=== PATIENT | male | born 1990 | race African-American/Black ===

== ENCOUNTER 2018-01-27 20:37 | Emergency (ER) | payer OTHER ==
--- NOTE | 2018-01-27 20:51 | EDM.PDOC ---
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 Past medical history: As per history of present illness and as reviewed below otherwise noncontributory. Surgical history: As per history of present illness and as reviewed below otherwise noncontributory. Social history: No reported history of drug or alcohol abuse. Family history: As per history of present illness and as reviewed below otherwise noncontributory. Physical exam: HEENT: Atraumatic, normocephalic, pupils reactive, negative for conjunctival pallor or scleral icterus, mucous membranes moist, throat clear, neck supple, nontender, trachea midline. Lungs: Clear to auscultation, breath sounds equal bilaterally, chest nontender. Heart: S1S2, regular, negative for clicks, rubs, or JVD. Abdomen: Soft, nondistended, nontender. Negative for masses or hepatosplenomegaly. Negative for costovertebral tenderness. Pelvis: Stable nontender. Genitourinary: Deferred. Rectal: Deferred. Extremities: Atraumatic, negative for cords or calf pain. Neurovascular unremarkable. Neuro: Awake, alert, oriented. Cranial nerves II through XII unremarkable. Cerebellum unremarkable. Motor and sensory unremarkable throughout. Exam nonfocal. Diagnostics: [CBC CMP carboxyhemoglobin Chest 1 view] Therapeutics: [GI cocktail ] Impression: [Carbon monoxide exposure ]Stomach upset Definitive disposition and diagnosis as appropriate pending reevaluation and review of above. - Related Data Allergies Allergy/AdvReac Type Severity Reaction Status Date / Time No Known Allergies Allergy Verified 01/27/18 20:51 Home Meds: Home Meds . [No Known Home Meds] 01/27/18 [History] ED ROS GENERAL - Review of Systems Review Of Systems: See Below ED EXAM, BURN/SMOKE INHALATION - Physical Exam Exam: See Below Course - Vital Signs Last Recorded V/S: Last Vital Signs Temp 97.1 F 01/27/18 20:55 Pulse 82 01/27/18 20:55 Resp 18 01/27/18 20:55 BP 121/72 01/27/18 20:55 Pulse Ox 97 01/27/18 20:55 - Orders/Labs/Meds Orders: Active Orders 24 hr Category Date Time Status Chest 1V Frontal [CR] Stat Exams 01/27/18 20:50 Taken DRUG SCREEN, URINE [URCHEM] Stat Lab 01/27/18 21:10 Ordered Labs: Laboratory Tests 01/27/18 01/27/18 01/27/18 Range/Units 21:06 21:06 21:06 WBC 6.87 (4.0-11.0) K/uL RBC 5.53 (4.50-5.90) M/uL Hgb 16.1 (13.0-17.0) g/dL Hct 45.8 (38.0-50.0) % MCV 82.8 (80.0-98.0) fL MCH 29.1 (27.0-32.0) pg MCHC 35.2 (31.0-37.0) g/dL RDW Std Deviation 39.6 (28.0-62.0) fl RDW Coeff of Masoud 13 (11.0-15.0) % Plt Count 198 (150-400) K/uL MPV 9.30 (7.40-12.00) fL Neut % (Auto) 40.3 L (48.0-80.0) % Lymph % (Auto) 46.0 H (16.0-40.0) % [place] % (Auto) 8.2 (0.0-15.0) % Eos % (Auto) 5.4 (0.0-7.0) % Baso % (Auto) 0.1 (0.0-1.5) % Neut # (Auto) 2.8 (1.4-5.7) K/uL Lymph # (Auto) 3.2 H (0.6-2.4) K/uL [place] # (Auto) 0.6 (0.0-0.8) K/uL Eos # (Auto) 0.4 (0.0-0.7) K/uL Baso # (Auto) 0.0 (0.0-0.1) K/uL Nucleated RBC % 0.0 /100WBC Nucleated RBCs # 0 K/uL ABG Carboxyhemoglobin 2.2 (0-15) % Sodium 144 (136-148) mmol/L Potassium 3.5 (3.5-5.1) mmol/L Chloride 107 (98-107) mmol/L Carbon Dioxide 26.8 (21.0-32.0) mmol/L BUN 13 (7.0-18.0) mg/dL Creatinine 1.0 (0.8-1.3) mg/dL Est Cr Clr Drug Dosing 102.82 mL/min Estimated GFR (MDRD) > 60.0 ml/min Glucose 99 (74-106) mg/dL Calcium 9.1 (8.5-10.1) mg/dL Total Bilirubin 0.3 (0.2-1.0) mg/dL AST 17 (15-37) IU/L ALT 36 (14-63) IU/L Alkaline Phosphatase 42 L (46-116) U/L Total Protein 7.7 (6.4-8.2) g/dL Albumin 4.3 (3.4-5.0) g/dL Globulin 3.4 (2.0-3.5) g/dL Albumin/Globulin Ratio 1.3 (1.3-2.8) Urine Opiates Screen (NEGATIVE) Ur Oxycodone Screen (NEGATIVE) Urine Methadone Screen (NEGATIVE) Ur Barbiturates Screen (NEGATIVE) Ur Phencyclidine Scrn (NEGATIVE) Ur Amphetamine Screen (NEGATIVE) U Methamphetamines Scrn (NEGATIVE) U Benzodiazepines Scrn (NEGATIVE) U Cocaine Metab Screen (NEGATIVE) U Marijuana (THC) Screen (NEGATIVE) 01/27/18 Range/Units 21:10 WBC (4.0-11.0) K/uL RBC (4.50-5.90) M/uL Hgb (13.0-17.0) g/dL Hct (38.0-50.0) % MCV (80.0-98.0) fL MCH (27.0-32.0) pg MCHC (31.0-37.0) g/dL RDW Std Deviation (28.0-62.0) fl RDW Coeff of Masoud (11.0-15.0) % Plt Count (150-400) K/uL MPV (7.40-12.00) fL Neut % (Auto) (48.0-80.0) % Lymph % (Auto) (16.0-40.0) % [place] % (Auto) (0.0-15.0) % Eos % (Auto) (0.0-7.0) % Baso % (Auto) (0.0-1.5) % Neut # (Auto) (1.4-5.7) K/uL Lymph # (Auto) (0.6-2.4) K/uL [place] # (Auto) (0.0-0.8) K/uL Eos # (Auto) (0.0-0.7) K/uL Baso # (Auto) (0.0-0.1) K/uL Nucleated RBC % /100WBC Nucleated RBCs # K/uL ABG Carboxyhemoglobin (0-15) % Sodium (136-148) mmol/L Potassium (3.5-5.1) mmol/L Chloride (98-107) mmol/L Carbon Dioxide (21.0-32.0) mmol/L BUN (7.0-18.0) mg/dL Creatinine (0.8-1.3) mg/dL Est Cr Clr Drug Dosing mL/min Estimated GFR (MDRD) ml/min Glucose (74-106) mg/dL Calcium (8.5-10.1) mg/dL Total Bilirubin (0.2-1.0) mg/dL AST (15-37) IU/L ALT (14-63) IU/L Alkaline Phosphatase (46-116) U/L Total Protein (6.4-8.2) g/dL Albumin (3.4-5.0) g/dL Globulin (2.0-3.5) g/dL Albumin/Globulin Ratio (1.3-2.8) Urine Opiates Screen NEGATIVE (NEGATIVE) Ur Oxycodone Screen NEGATIVE (NEGATIVE) Urine Methadone Screen NEGATIVE (NEGATIVE) Ur Barbiturates Screen NEGATIVE (NEGATIVE) Ur Phencyclidine Scrn NEGATIVE (NEGATIVE) Ur Amphetamine Screen NEGATIVE (NEGATIVE) U Methamphetamines Scrn NEGATIVE (NEGATIVE) U Benzodiazepines Scrn NEGATIVE (NEGATIVE) U Cocaine Metab Screen NEGATIVE (NEGATIVE) U Marijuana (THC) Screen NEGATIVE (NEGATIVE) Meds: Medications Discontinued Medications Generic Name Dose Route Start Last Admin Trade Name Thania PRN Reason Stop Dose Admin Al Hydroxide/Mg Hydroxide 15 0 ml 01/27/18 21:27 01/27/18 21:39 ml/ Metoclopramide HCl 5 mg/ PO 01/27/18 21:28 25 each Lidocaine HCl 5 ml ONETIME ONE Administration Departure - Departure Time of Disposition: 21:54 Disposition: Home, Self-Care 01 Condition: Good Clinical Impression: Stomach upset - Discharge Information Referrals: PCP,None [Primary Care Provider] - Forms: ED Department Discharge Additional Instructions: The following information is given to patients seen in the emergency department who are being discharged to home. This information is to outline your options for follow-up care. We provide all patients seen in our emergency department with a follow-up referral. The need for follow-up, as well as the timing and circumstances, are variable depending upon the specifics of your emergency department visit. If you don't have a primary care physician on staff, we will provide you with a referral. We always advise you to contact your personal physician following an emergency department visit to inform them of the circumstance of the visit and for follow-up with them and/or the need for any referrals to a consulting specialist. The emergency department will also refer you to a specialist when appropriate. This referral assures that you have the opportunity for follow-up care with a specialist. All of these measure are taken in an effort to provide you with optimal care, which includes your follow-up. Under all circumstances we always encourage you to contact your private physician who remains a resource for coordinating your care. When calling for follow-up care, please make the office aware that this follow-up is from your recent emergency room visit. If for any reason you are refused follow-up, please contact the [facility] emergency department at and asked to speak to the emergency department charge nurse. - My Orders Last 24 Hours: My Active Orders 01/27/18 20:50 Chest 1V Frontal [CR] Stat 01/27/18 21:10 DRUG SCREEN, URINE [URCHEM] Stat - Assessment/Plan Last 24 Hours: My Active Orders 01/27/18 20:50 Chest 1V Frontal [CR] Stat 01/27/18 21:10 DRUG SCREEN, URINE [URCHEM] Stat
[2018-01-27] MEDS ORDERED: Alum Hydrox/Mag Hydrox/Simeth 15 ML, Metoclopramide 5 MG, Lidocaine 2% 5 ML PO ONE ×3 (21:27)
[2018-01-27 21:33] LABS: CHLORIDE,CL 107 mmol/L (98-107); SODIUM,NA 144 mmol/L (136-148)
--- NOTE | 2018-01-29 14:32 | CR ---
EXAM DATE: 01/27/18 PATIENT'S AGE: 27 Patient: RONNIE MOBLEY Facility: [place], [place] Site . Site : 1990 Study: XRay Chest [id number]/16/2018 9:20:32 PM Ordering Physician: Vesta Simms Final Report: HISTORY: Chest pain and nausea. Carbon monoxide exposure. TECHNIQUE: One view of the chest. COMPARISON: No prior. FINDINGS: Cardiac size and pulmonary vasculature are within normal limits. There is no lung infiltrate or pulmonary edema. No pneumothorax or pleural effusion. No acute bony abnormality. IMPRESSION: No acute disease. Dictated by Mat Castillo MD @ 01/27/2018 9:48:32 PM Dictated by: Mat Castillo MD @ 01/27/2018 21:48:34 (Electronic Signature) Report Signed by Proxy. [facility]ITALJc
== END 2018-01-27 22:29 | disposition home or self-care (01) ==
LOC: MW.ED 20:37
DX: K30 Functional dyspepsia (principal); Z57.5 Occupational exposure to toxic agents in other industries
CPT/HCPCS: 36415; 71045; 80053; 80305; 82375; 85025; 99283; A9270

== ENCOUNTER 2020-11-23 16:56 | Emergency (ER) | payer OTHER ==
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
--- NOTE | 2020-11-23 18:09 | CR ---
Indication: injury Technique: 3 view right elbow Findings: Normal alignment. Small humeral enthesophyte. No acute fracture. Mild soft tissue swelling. Dictated by Kita Henderson MD @ Nov 23 2020 5:59PM Signed by Dr. Kita Henderson @ Nov 23 2020 6:07PM
== END 2020-11-23 18:34 ==
LOC: MW.ED 16:56
DX: S59.901A Unspecified injury of right elbow, initial encounter (principal); V49.9XXA Car occupant (driver) (passenger) injured in unspecified traffic accident, initial encounter
CPT/HCPCS: 73080-26-RT; 73080-RT; 99283; 99284

== ENCOUNTER 2022-05-27 12:37 | Emergency (ER) | payer SELFPAY ==
[2022-05-27] MEDS: Alum Hydro/Mag Hydro/Simeth XS 15 ML, Lidocaine 2% 5 ML PO ONE ×2 (14:55)
[2022-05-27] MEDS: Famotidine 20 MG Tab PO ONE (14:55)
[2022-05-27 15:37] LABS: CARBON DIOXIDE,CO2 23.9 mmol/L (21.0-32.0); POTASSIUM,K 3.8 mmol/L (3.5-5.1)
[2022-05-27] MEDS: fentaNYL 50 MCG/ML SDV IVPUSH ONE (16:33)
[2022-05-27] MEDS ORDERED: Iopamidol 755 MG/ML 500 ML Multipack Bottle IVPUSH STA (17:10)
== END 2022-05-27 18:39 | disposition home or self-care (01) ==
LOC: MW.ED 12:37
DX: R10.12 Left upper quadrant pain (principal); R10.13 Epigastric pain; Z20.822 Contact with and (suspected) exposure to COVID-19
CPT/HCPCS: 36415; 74177; 80053; 83690; 85025; 96374; 99284; A9270; J3010; 99283

== ENCOUNTER 2022-06-07 16:55 | Emergency (ER) | payer OTHER ==
[2022-06-07] MEDS: Morphine 4 MG/ML Syringe IVPUSH ONE ×2 (18:41→19:52)
== END 2022-06-07 20:00 | disposition home or self-care (01) ==
LOC: MW.ED 16:55
DX: S39.012A Strain of muscle, fascia and tendon of lower back, initial encounter (principal); R15.9 Full incontinence of feces; V43.53XA Car driver injured in collision with pick-up truck in traffic accident, initial encounter; Y92.410 Unspecified street and highway as the place of occurrence of the external cause
CPT/HCPCS: 72128; 72128-26; 72131; 72131-26; 99284; J2270